=== PATIENT | male | born 1990 | race Two or more races ===

== ENCOUNTER 2019-11-11 03:01 | Emergency (ER) | payer BC ==
[~2019-11-11] VITALS: Ht 165.1 cm; Wt 74.8 kg
[2019-11-11 03:20] VITALS: BP 120/79
--- NOTE | 2019-11-11 03:41 | PHYS DOC ---
Past Medical History Past Medical History: Other Additional Past Medical Histor: KIDNEY DISEASE Additional Past Surgical Histo: KIDNEY TRANSPLANTS X2 Smoking Status: Never Smoker Alcohol Use: None Adult General Chief Complaint Chief Complaint: MECHANICAL FALL HPI HPI 29-year-old male presents to the emergency department complaints of left rib pain, patient had a fall approximately 1 week ago states he was cleaning the gutters at that time. Unknown loss of consciousness. He does not take blood thinning medications. He does have a history of left renal transplant. Patient states he presents to the ER tonight because of the pain. He is unable to take any nonsteroidal anti-inflammatories [id number]. He is afebrile. Has had no hematuria. Patient denies any shortness of breath, nausea, vomiting, abdomin al pain. Movements deep breaths make his pain worse Review of Systems Review of Systems Constitutional: Denies fever or chills [] Respiratory: SOB Cardiovascular: No additional information not addressed in HPI [] GI: Denies abdominal pain, nausea, vomiting, bloody stools or diarrhea [] Musculoskeletal: Denies back pain or joint pain [] Integument: bruising to left side of chest Neurologic: Denies headache, focal weakness or sensory changes [] All other systems were reviewed and found to be within normal limits, except as documented in this note. Allergies Allergies Allergies Coded Allergies Type Severity Reaction Last Updated Verified No Known Drug Allergies 11/11/19 No Physical Exam Physical Exam Constitutional: Well developed, well nourished, mild distress 2/2 left side pain, non-toxic appearance. [] HENT: Normocephalic, atraumatic, bilateral external ears normal, oropharynx moist, no oral exudates, nose normal. [] Eyes: PERRLA, EOMI, conjunctiva normal, no discharge. [] Neck: Normal range of motion, no tenderness, supple, no stridor. [] Cardiovascular:Heart rate regular rhythm, no murmur [] Lungs & Thorax: Bilateral breath sounds clear to auscultation [] Abdomen: Bowel sounds normal, soft, no tenderness, no masses, no pulsatile masses. [] Skin: Warm, dry, no erythema, no rash. [] Back: No tenderness, no CVA tenderness. [] Neurologic: Alert and oriented X 3, no focal deficits noted. [] Psychologic: Affect normal, judgement normal, mood normal. [] Current Patient Data Vital Signs Vital Signs Date Time Temp Pulse Resp B/P (MAP) Pulse Ox O2 Delivery O2 Flow Rate FiO2 11/11/19 03:20 97.8 86 14 120/79 (93) 96 Room Air 97.8 EKG EKG [] Radiology/Procedures Radiology/Procedures [facility] [address] [place] [address] IMAGING REPORT Signed PATIENT: RICHARD RAMIRES LACCOUNT: [id number] : 1990 LOCATION: ER AGE: 29 SEX: M EXAM STATUS: REG ER ORD. PHYSICIAN: CLAUDETTE SARMIENTO MD REASON: fall x 1 week ago, large hematoma to left side PROCEDURE: RIBS LEFT AND PA CHEST RIBS LEFT AND PA CHEST DATE: 11/11/2019 3:34 AM INDICATION: Fall with large left chest wall hematoma COMPARISON: None available. FINDINGS: Chest: Heart size is within normal limits. No focal consolidations are seen. No evidence for pulmonary edema, pleural effusion, or pneumothorax. Bones: No radiographic evidence for a displaced, left-sided rib fracture is seen. IMPRESSION: No radiographic evidence for left-sided rib fracture. Electronically signed by: Ricco Irvin MD (11/11/2019 4:17 AM) [id number] DICTATED and SIGNED BY: RICCO IRVIN MD DATE: 11/11/19 0417 [] Course & Med Decision Making Course & Med Decision Making Pertinent Labs and Imaging studies reviewed. (See chart for details) [] 29-year-old male presents to the emergency department complaints of left rib pain, patient had a fall approximately 1 week ago states he was cleaning the gutters at that time. Unknown loss of consciousness. He does not take blood thinning medications. He does have a history of left renal transplant. Patient states he presents to the ER tonight because of the pain. He is unable to take any nonsteroidal anti-inflammatories [id number]. He is afebrile. Has had no hematuria. Patient denies any shortness of breath, nausea, vomiting, abdominal pain. Movements deep breaths make his pain worse No rib fracture appreciated Recommend follow-up primary care physician as needed, tramadol Rx provided for pain No evidence of pneumothorax appreciated. Recommend discharge home Dragon Disclaimer Dragon Disclaimer This electronic medical record was generated, in whole or in part, using a voice recognition dictation system. Departure Departure Impression: Primary Impression: Fall Additional Impression: Left-sided chest wall pain Disposition: HOME, SELF-CARE Condition: STABLE Patient Instructions: Chest Contusion, Chest Wall Pain, [id number] Additional Instructions: No fracture appreciated to the ribs, no pneumothorax Recommend tramadol as needed for pain Follow-up with primary care physician in 3 to 5 days Return to the emergency department for worsening symptoms Scripts Tramadol Hcl (TRAMADOL HCL) 50 Mg Tablet 50 MG PO Q6-8HRS PRN for PAIN, #10 TAB 0 Refills Prov: CLAUDETTE SARMIENTO MD 11/11/19 Problem Qualifiers Primary Impression: Fall Encounter type: initial encounter Qualified Codes: W19.XXXA - Unspecified fall, initial encounter CLAUDETTE SARMIENTO MD Nov 11, 2019 03:41
--- NOTE | 2019-11-11 04:20 | RAD ---
RIBS LEFT AND PA CHEST DATE: 11/11/2019 3:34 AM INDICATION: Fall with large left chest wall hematoma COMPARISON: None available. FINDINGS: Chest: Heart size is within normal limits. No focal consolidations are seen. No evidence for pulmonary edema, pleural effusion, or pneumothorax. Bones: No radiographic evidence for a displaced, left-sided rib fracture is seen. IMPRESSION: No radiographic evidence for left-sided rib fracture. Electronically signed by: Jamey Irvin MD (11/11/2019 4:17 AM) [id number]
[2019-11-11] MEDS ORDERED: TRAM50TA PO (04:36)
== END 2019-11-11 04:39 | disposition home or self-care (01) ==
LOC: ER 03:01
DX: R07.81 Pleurodynia (principal); R06.02 Shortness of breath; N18.9 Chronic kidney disease, unspecified; Z94.0 Kidney transplant status
CPT/HCPCS: 71101; 99283